=== PATIENT | male | born 1970 | race Two or more races ===

== ENCOUNTER 2021-03-26 13:54 | Inpatient (IN) | payer MEDICAID ==
[~2021-03-26] VITALS: Ht 182.9 cm; Wt 158.8 kg
[~2021-03-26 13:54] MED LIST: ARIP15TA27 PO; ARIP882S IM; DIVA-112 PO
[2021-03-26] MEDS ORDERED: LORazepam 2 MG TABLET PO ONE (15:00)
[2021-03-26] MEDS ORDERED: DiphenhydrAMINE HCL 25 MG CAPSULE PO ONE (15:00)
[2021-03-26] MEDS ORDERED: ZOLPIDEM TARTRATE 10 MG TABLET PO PRN (15:00)
[2021-03-26 15:10] LABS: BASOPHILS % (AUTO) 0.7 % (0.0-2.0); EOSINOPHILS % (AUTO) 2.6 % (1.0-6.0); HEMATOCRIT 31.4 % (41-53); HEMOGLOBIN 9.9 g/dL (13.5-17.5); LYMPHOCYTES % (AUTO) 12.1 % (22.0-44.0); MEAN CORPUSCULAR HEMOGLOBIN 24.2 pg (26.0-34.0); MEAN CORPUSCULAR HGB CONC 31.6 G/dL (31.0-37.0); MEAN CORPUSCULAR VOLUME 77 fL (80-100); MONOCYTES % (AUTO) 6.8 % (2.0-9.0); NEUTROPHILS # (AUTO) 6.2 K/uL (1.8-7.7); NEUTROPHILS % (AUTO) 77.8 % (40.0-70.0); PLATELET COUNT (AUTO) 274 K/uL (150-450); RED BLOOD CELL COUNT(AUTO) 4.09 MIL/uL (4.50-5.90); RED CELL DISTRIBUTION WIDTH 18.8 % (11.5-14.5)
[2021-03-26 15:11] LABS: MONOCYTES # (AUTO) 0.5 K/uL (0.1-1.0)
[2021-03-26 15:19] LABS: ANION GAP 7 mmol/L (8-16); CALCIUM, TOTAL 8.7 mg/dL (8.8-10.5); CARBON DIOXIDE 27 mmol/L (22-29); CHLORIDE 104 mmol/L (98-107); CREATININE 0.95 mg/dL (0.60-1.30); GLOMERULAR FILTR. RATE CALC > 60 mL/min (>60); GLUCOSE,RANDOM 138 mg/dL (70-110); POTASSIUM 3.3 mmol/L (3.5-5.1); SODIUM SERUM 138 mmol/L (136-145); UREA NITROGEN, BLOOD 13 mg/dL (7-18)
[2021-03-26 15:25] LABS: ALANINE AMINOTRANSFERASE 53 U/L (12-78); ALBUMIN 3.4 g/dL (3.4-5.0); ALKALINE PHOSPHATASE 76 U/L (46-116); ASPARTATE AMINOTRANSFERASE 32 U/L (15-37); BILIRUBIN,TOTAL 1.1 mg/dL (0.1-1.0); TOTAL PROTEIN, SERUM 7.9 g/dL (6.4-8.2)
[2021-03-26 16:06] LABS: COVID AG,FIA SOURCE NASOPHARYNGEAL
[2021-03-26 16:26] LABS: AMPHET/METH SCREEN,URINE NEGATIVE (NEGATIVE); BARBITURATE SCREEN, URINE NEGATIVE (NEGATIVE); BENZODIAZEPINES SCREEN,URINE NEGATIVE (NEGATIVE); CANNABINOID SCREEN,URINE NEGATIVE (NEGATIVE); COCAINE SCREEN,URINE NEGATIVE (NEGATIVE); METHADONE SCREEN, URINE NEGATIVE (NEGATIVE); OPIATE SCREEN,URINE NEGATIVE (NEGATIVE); PHENCYCLIDINE SCREEN,URINE NEGATIVE (NEGATIVE)
[2021-03-26] MEDS ORDERED: POTASSIUM CHLORIDE 10% 40 MEQ/30 ML LIQUID UDCUP PO ONE (18:30)
[2021-03-27] MEDS: LORazepam 2 MG TABLET PO PRN ×3 (00:51→19:58)
[2021-03-27 10:22] LABS: CHOL/HDL RATIO 3.3 (4.2-7.3); FREE T4 (FREE THYROXINE) 1.02 ng/dL (0.76-1.46); THYROID STIMULATING HORMONE 1.47 uIU/mL (0.36-3.74)
[2021-03-27] MEDS ORDERED: NICOTINE 21 MG/24 HOUR PATCH TD PRN (18:15)
[2021-03-27 18:34] VITALS: BP 144/76
[2021-03-28] MEDS ORDERED: DOCUSATE SODIUM 100 MG CAPSULE PO PRN (06:00)
[2021-03-28] MEDS ORDERED: MAG HYDROX/AL HYDROX/SIMETH ES 30 ML SUSPENSION UDCUP PO PRN (06:00)
[2021-03-28] MEDS ORDERED: ACETAMINOPHEN 325 MG TABLET PO PRN (06:00)
[2021-03-28] MEDS ORDERED: IBUPROFEN 400 MG TABLET PO PRN (06:00)
[2021-03-28] MEDS ORDERED: ALBUTEROL SULFATE HFA 90 MCG/PUFF 8 GM INHALER IH PRN (06:00)
[2021-03-28] MEDS ORDERED: ONDANSETRON HCL 4 MG TABLET PO PRN (06:00)
[2021-03-28] MEDS ORDERED: CloNIDine HCL 0.1 MG TABLET PO PRN (06:00)
[2021-03-28] MEDS ORDERED: LOPERAMIDE HCL 2 MG CAPSULE PO PRN (06:00)
[2021-03-28] MEDS ORDERED: MAGNESIUM HYDROXIDE SUSPENSION 30 ML UDCUP PO PRN (06:00)
[2021-03-28] MEDS ORDERED: PETROLATUM,WHITE 28 GM JELLY TP PRN (06:00)
[2021-03-28] MEDS ORDERED: GuaiFENesin/D-METHORPHAN [SUGAR-FREE] 200-20MG/10 ML SYRUP UDCUP PO PRN (06:00)
[2021-03-28 08:20] VITALS: BP 158/84
[2021-03-28] MEDS: LORazepam 2 MG TABLET PO PRN ×2 (09:15→20:09)
[2021-03-28] MEDS: ARIPiprazole 10 MG TABLET PO SCH (11:27)
[2021-03-28] MEDS: DIVALPROEX SODIUM 500 MG DR TABLET PO SCH ×2 (11:27→20:09)
[2021-03-28] MEDS: LEVOFLOXACIN 500 MG TABLET PO SCH (14:07)
[2021-03-29] MEDS: ARIPiprazole 10 MG TABLET PO SCH (08:10)
[2021-03-29] MEDS: LEVOFLOXACIN 500 MG TABLET PO SCH (08:10)
[2021-03-29] MEDS: HALOPERIDOL 5 MG TABLET PO PRN ×2 (08:10→16:43)
[2021-03-29] MEDS: MULTIVITAMINS WITH MINERALS, THERAPEUTIC TABLET PO SCH (08:10)
[2021-03-29] MEDS: DIVALPROEX SODIUM 500 MG DR TABLET PO SCH ×2 (08:10→20:44)
[2021-03-29] MEDS: LORazepam 2 MG TABLET PO PRN ×2 (08:10→16:42)
[2021-03-29 08:21] VITALS: BP 146/95
[2021-03-29] MEDS: NICOTINE 14 MG/24 HOUR PATCH TD PRN (10:18)
[2021-03-30] MEDS: LEVOFLOXACIN 500 MG TABLET PO SCH (08:29)
[2021-03-30] MEDS: HALOPERIDOL 5 MG TABLET PO PRN ×2 (08:31→15:57)
[2021-03-30] MEDS: ARIPiprazole 10 MG TABLET PO SCH (08:31)
[2021-03-30] MEDS: DIVALPROEX SODIUM 500 MG DR TABLET PO SCH ×2 (08:31→20:16)
[2021-03-30] MEDS: LORazepam 2 MG TABLET PO PRN ×3 (08:31→20:16)
[2021-03-30] MEDS: NICOTINE 14 MG/24 HOUR PATCH TD PRN (08:31)
[2021-03-30] MEDS: MULTIVITAMINS WITH MINERALS, THERAPEUTIC TABLET PO SCH (08:31)
[2021-03-30 16:43] VITALS: BP 153/93
[2021-03-31 08:00] VITALS: BP 129/77
[2021-03-31] MEDS: LEVOFLOXACIN 500 MG TABLET PO SCH (08:43)
[2021-03-31] MEDS: MULTIVITAMINS WITH MINERALS, THERAPEUTIC TABLET PO SCH (08:44)
[2021-03-31] MEDS: NICOTINE 14 MG/24 HOUR PATCH TD PRN (08:44)
[2021-03-31] MEDS: DIVALPROEX SODIUM 500 MG DR TABLET PO SCH ×2 (08:44→20:22)
[2021-03-31] MEDS: ARIPiprazole 10 MG TABLET PO SCH (08:44)
[2021-03-31 18:00] VITALS: BP 125/75
[2021-03-31] MEDS: LORazepam 2 MG TABLET PO PRN (20:22)
[2021-04-01] MEDS: LEVOFLOXACIN 500 MG TABLET PO SCH (08:15)
[2021-04-01] MEDS: MULTIVITAMINS WITH MINERALS, THERAPEUTIC TABLET PO SCH (08:15)
[2021-04-01] MEDS: ARIPiprazole 10 MG TABLET PO SCH (08:15)
[2021-04-01] MEDS: DIVALPROEX SODIUM 500 MG DR TABLET PO SCH ×2 (08:15→21:11)
[2021-04-01] MEDS: NICOTINE 14 MG/24 HOUR PATCH TD PRN (08:20)
[2021-04-01 08:46] VITALS: BP 142/99
[2021-04-01 16:30] VITALS: BP 162/96
[2021-04-01] MEDS: LORazepam 2 MG TABLET PO PRN (17:13)
[2021-04-01] MEDS: HALOPERIDOL 5 MG TABLET PO PRN (17:13)
[2021-04-02] MEDS: DIVALPROEX SODIUM 500 MG DR TABLET PO SCH ×2 (10:50→20:18)
[2021-04-02] MEDS: LEVOFLOXACIN 500 MG TABLET PO SCH (10:50)
[2021-04-02] MEDS: MULTIVITAMINS WITH MINERALS, THERAPEUTIC TABLET PO SCH (10:50)
[2021-04-02] MEDS: ARIPiprazole 10 MG TABLET PO SCH (10:51)
[2021-04-02 14:19] LABS: COVID AG,FIA SOURCE NASOPHARYNGEAL
[2021-04-03 08:24] VITALS: BP 126/89
[2021-04-03] MEDS: NICOTINE 14 MG/24 HOUR PATCH TD PRN (08:42)
[2021-04-03] MEDS: DIVALPROEX SODIUM 500 MG DR TABLET PO SCH ×2 (08:42→21:12)
[2021-04-03] MEDS: LEVOFLOXACIN 500 MG TABLET PO SCH (08:42)
[2021-04-03] MEDS: MULTIVITAMINS WITH MINERALS, THERAPEUTIC TABLET PO SCH (08:42)
[2021-04-03] MEDS: ARIPiprazole 10 MG TABLET PO SCH (08:42)
[2021-04-03 16:00] VITALS: BP 135/83
[2021-04-03] MEDS: HALOPERIDOL 5 MG TABLET PO PRN (16:19)
[2021-04-03] MEDS: LORazepam 2 MG TABLET PO PRN (16:19)
[2021-04-04 08:28] VITALS: BP 160/105
[2021-04-04] MEDS: MULTIVITAMINS WITH MINERALS, THERAPEUTIC TABLET PO SCH (09:13)
[2021-04-04] MEDS: ARIPiprazole 10 MG TABLET PO SCH (09:13)
[2021-04-04] MEDS: DIVALPROEX SODIUM 500 MG DR TABLET PO SCH ×2 (09:13→20:35)
[2021-04-04] MEDS: LEVOFLOXACIN 500 MG TABLET PO SCH (09:13)
[2021-04-04] MEDS: HALOPERIDOL 5 MG TABLET PO PRN (15:52)
[2021-04-04 16:58] VITALS: BP 150/84
[2021-04-05 08:19] VITALS: BP 135/91
[2021-04-05] MEDS: LEVOFLOXACIN 500 MG TABLET PO SCH (09:35)
[2021-04-05] MEDS: ARIPiprazole 10 MG TABLET PO SCH (09:36)
[2021-04-05] MEDS: MULTIVITAMINS WITH MINERALS, THERAPEUTIC TABLET PO SCH (09:36)
[2021-04-05] MEDS: DIVALPROEX SODIUM 500 MG DR TABLET PO SCH ×2 (09:37→20:18)
[2021-04-05] MEDS: HALOPERIDOL 5 MG TABLET PO PRN (15:48)
[2021-04-05 16:10] VITALS: BP 149/83
[2021-04-06] MEDS: ARIPiprazole 10 MG TABLET PO SCH (08:09)
[2021-04-06] MEDS: DIVALPROEX SODIUM 500 MG DR TABLET PO SCH ×2 (08:09→20:09)
[2021-04-06] MEDS: MULTIVITAMINS WITH MINERALS, THERAPEUTIC TABLET PO SCH (08:09)
[2021-04-06] MEDS: LEVOFLOXACIN 500 MG TABLET PO SCH (08:09)
[2021-04-06 08:32] VITALS: BP 142/80
[2021-04-07] MEDS: ARIPiprazole 15 MG TABLET PO SCH (07:56)
[2021-04-07] MEDS: MULTIVITAMINS WITH MINERALS, THERAPEUTIC TABLET PO SCH (07:56)
[2021-04-07 09:25] VITALS: BP 152/91
[2021-04-07] MEDS: DIVALPROEX SODIUM 500 MG DR TABLET PO SCH ×2 (09:41→20:02)
[2021-04-07] MEDS: LEVOFLOXACIN 500 MG TABLET PO SCH (09:41)
[2021-04-07 17:01] VITALS: BP 144/94
[2021-04-08 08:14] VITALS: BP 101/78
[2021-04-08] MEDS: MULTIVITAMINS WITH MINERALS, THERAPEUTIC TABLET PO SCH (08:16)
[2021-04-08] MEDS: DIVALPROEX SODIUM 500 MG DR TABLET PO SCH ×2 (08:16→20:40)
[2021-04-08] MEDS: ARIPiprazole 15 MG TABLET PO SCH (08:16)
[2021-04-08] MEDS: NICOTINE 14 MG/24 HOUR PATCH TD PRN (10:49)
[2021-04-08 16:43] VITALS: BP 163/85
[2021-04-09 08:47] LABS: COVID AG,FIA SOURCE NASAL SWAB
[2021-04-09] MEDS: MULTIVITAMINS WITH MINERALS, THERAPEUTIC TABLET PO SCH (09:43)
[2021-04-09] MEDS: DIVALPROEX SODIUM 500 MG DR TABLET PO SCH ×2 (09:43→20:02)
[2021-04-09] MEDS: ARIPiprazole 15 MG TABLET PO SCH (09:43)
[2021-04-09 16:34] VITALS: BP 153/82
[2021-04-10 08:02] VITALS: BP 109/80
[2021-04-10] MEDS: MULTIVITAMINS WITH MINERALS, THERAPEUTIC TABLET PO SCH (09:37)
[2021-04-10] MEDS: DIVALPROEX SODIUM 500 MG DR TABLET PO SCH ×2 (09:37→20:18)
[2021-04-10] MEDS: ARIPiprazole 15 MG TABLET PO SCH (09:38)
[2021-04-10 18:44] VITALS: BP 112/69
[2021-04-11] MEDS: MULTIVITAMINS WITH MINERALS, THERAPEUTIC TABLET PO SCH (08:04)
[2021-04-11] MEDS: ARIPiprazole 15 MG TABLET PO SCH (08:04)
[2021-04-11] MEDS: DIVALPROEX SODIUM 500 MG DR TABLET PO SCH ×2 (08:04→20:22)
[2021-04-11 08:11] VITALS: BP 134/94
[2021-04-11 16:32] VITALS: BP 162/91
[2021-04-12 08:08] VITALS: BP 135/77
[2021-04-12] MEDS: ARIPiprazole 15 MG TABLET PO SCH (09:31)
[2021-04-12] MEDS: MULTIVITAMINS WITH MINERALS, THERAPEUTIC TABLET PO SCH (09:31)
[2021-04-12] MEDS: DIVALPROEX SODIUM 500 MG DR TABLET PO SCH ×2 (09:31→19:51)
[2021-04-12 16:00] VITALS: BP 143/87
[2021-04-12] MEDS: HALOPERIDOL 5 MG TABLET PO PRN (19:50)
[2021-04-12] MEDS: LORazepam 2 MG TABLET PO PRN (19:50)
[2021-04-13 08:27] VITALS: BP 129/72
[2021-04-13] MEDS: DIVALPROEX SODIUM 500 MG DR TABLET PO SCH ×2 (11:06→20:16)
[2021-04-13] MEDS: MULTIVITAMINS WITH MINERALS, THERAPEUTIC TABLET PO SCH (11:06)
[2021-04-13] MEDS: ARIPiprazole 15 MG TABLET PO SCH (11:08)
[2021-04-13 16:20] VITALS: BP 158/78
[2021-04-13 16:21] VITALS: BP 148/75
[2021-04-14] MEDS: DIVALPROEX SODIUM 500 MG DR TABLET PO SCH ×2 (07:26→20:11)
[2021-04-14] MEDS: ARIPiprazole 15 MG TABLET PO SCH (07:26)
[2021-04-14] MEDS: MULTIVITAMINS WITH MINERALS, THERAPEUTIC TABLET PO SCH (07:26)
[2021-04-14 08:40] VITALS: BP 123/72
[2021-04-14 16:08] VITALS: BP 130/83
[2021-04-15] MEDS: MULTIVITAMINS WITH MINERALS, THERAPEUTIC TABLET PO SCH (07:38)
[2021-04-15] MEDS: ARIPiprazole 15 MG TABLET PO SCH (07:38)
[2021-04-15] MEDS: DIVALPROEX SODIUM 500 MG DR TABLET PO SCH ×2 (07:38→20:15)
[2021-04-15 08:03] VITALS: BP 151/87
[2021-04-15 16:00] VITALS: BP 114/75
[2021-04-15] MEDS: LORazepam 2 MG TABLET PO PRN (16:16)
[2021-04-15] MEDS: HALOPERIDOL 5 MG TABLET PO PRN (20:15)
[2021-04-16 08:00] LABS: COVID AG,FIA SOURCE NASAL SWAB
[2021-04-16 08:01] VITALS: BP 133/97
[2021-04-16] MEDS: DIVALPROEX SODIUM 500 MG DR TABLET PO SCH ×2 (09:20→20:05)
[2021-04-16] MEDS: ARIPiprazole 15 MG TABLET PO SCH (09:20)
[2021-04-16] MEDS: MULTIVITAMINS WITH MINERALS, THERAPEUTIC TABLET PO SCH (09:20)
[2021-04-16 15:17] LABS: COVID AG,FIA SOURCE NASOPHARYNGEAL
[2021-04-16 16:44] VITALS: BP 138/79
[2021-04-17 08:06] VITALS: BP 139/81
[2021-04-17] MEDS: ARIPiprazole 15 MG TABLET PO SCH (08:47)
[2021-04-17] MEDS: MULTIVITAMINS WITH MINERALS, THERAPEUTIC TABLET PO SCH (08:47)
[2021-04-17] MEDS: DIVALPROEX SODIUM 500 MG DR TABLET PO SCH ×2 (08:47→21:11)
[2021-04-17 16:34] VITALS: BP 115/64
[2021-04-17] MEDS: HALOPERIDOL 5 MG TABLET PO PRN (21:12)
[2021-04-17] MEDS: LORazepam 2 MG TABLET PO PRN (21:12)
[2021-04-18] MEDS: ARIPiprazole 15 MG TABLET PO SCH (08:32)
[2021-04-18] MEDS: MULTIVITAMINS WITH MINERALS, THERAPEUTIC TABLET PO SCH (08:33)
[2021-04-18] MEDS: DIVALPROEX SODIUM 500 MG DR TABLET PO SCH (08:33)
[2021-04-18 09:04] VITALS: BP 154/92
[2021-04-18] MEDS: NICOTINE 14 MG/24 HOUR PATCH TD PRN (10:13)
== END 2021-04-18 14:20 | disposition home or self-care (01) | DRG 750 ==
LOC: EMS 13:54 → 3EC 03-27 15:34
PROVIDERS: ADMIT Psychiatry & Neurology Child & Adolescent Psychiatry; ATTEND Psychiatry & Neurology Child & Adolescent Psychiatry
DX: F20.0 Paranoid schizophrenia (principal); D63.8 Anemia in other chronic diseases classified elsewhere; B35.1 Tinea unguium; E66.9 Obesity, unspecified; E87.6 Hypokalemia; F15.10 Other stimulant abuse, uncomplicated; Z59.00 Homelessness unspecified; F17.210 Nicotine dependence, cigarettes, uncomplicated; F41.9 Anxiety disorder, unspecified; I87.8 Other specified disorders of veins; Z71.6 Tobacco abuse counseling; Z20.822 Contact with and (suspected) exposure to COVID-19
CPT/HCPCS: 80053; 80061; 80164; 84132; 84439; 84443; 85025; 93005; 99285; G0480